=== PATIENT | male | born 1980 | race Caucasian/White ===

== ENCOUNTER 2017-09-19 11:30 | Emergency (ER) | payer BC, OTHER ==
--- NOTE | 2017-09-19 12:18 | ERNOTE ---
Medical Problem HPI - Narrative Date of Service: 09/19/17 - General Chief Complaint: General Assessment Time Seen by Provider: 09/19/17 11:53 Source: patient, family, RN notes reviewed Exam Limitations: no limitations - Immun/Allergies/Home Medications Immunizations: IMMUNIZATION HX Immunizations Up to Date No: unsure History of Influenza Vaccine No Hx Pneumococcal Vaccination No Allergies/Adverse Reactions: Allergies hydrocodone Allergy (Verified 09/19/17 12:09) naproxen [From Aleve] Adverse Reaction (Verified 09/19/17 12:09) Home Medications: HOME MEDICATIONS Cyclobenzaprine HCl [Flexeril] 10 mg PO TID PRN #20 tab 09/19/17 [Last Taken Unknown] Ibuprofen 400 mg PO QID PRN 09/19/17 [Last Taken Unknown] - History of Present History Narrative: 37 year old male presents to the ED for pain in his right lateral ribs that began approximately a year ago without incident. He was told at one time that he had a "rib out of place." He has taken ibuprofen for pain occasionally. He reports that the effected area feels "dry" on the inside. He is concerned something is wrong with his lung. Timing: getting worse, intermittent Review of Systems - Review of Systems Constitutional: Absent: recent illness, fever, malaise, decreased activity level EYE: Present: no symptoms reported ENT: Absent: nose congestion, sore throat Respiratory: Absent: shortness of breath, cough, wheezing Cardiology: Absent: palpitations, syncope Gastrointestinal/Abdominal: Absent: nausea, abdominal pain Genitourinary: Present: no symptoms reported Musculoskeletal: Present: back pain. Absent: neck pain, joint pain Skin: Absent: rash, lesions, lumps, change in color Neurological: Absent: headache, weakness, numbness, tingling Endocrine: Present: no symptoms reported Hematologic/Lymphatic: Present: no symptoms reported Psych: Present: no symptoms reported - Patient's Past Medical History Patient History - Medical: Anxiety, Depression Patient History - Cardiac/Respiratory: No pertinent hx Patient History - Cancer: No Hx of Cancer Patient History - Surgical Procedures: No surgical history Patient History - Other: None - Family History Father Family History - Medical: Family History - Cardiac/Respiratory: COPD Mother Family History - Medical: Family History - Cancer: Bone, Breast - Social History Living Situations: home Abuse History: No History of abuse Psych History: Hx of Anxiety, Hx of Depression Smoking Status: Current every day smoker Have you smoked in the past 12 months: Yes Do you dip or chew tobacco: No Alcohol Use: none Drug Use: none - Immunizations Immunizations Up to Date: No - unsure Hx Pneumococcal Vaccination: No History of Influenza Vaccine: No Physical Exam - Physical Exam General Appearance: Present: wd/wn, alert, no apparent distress Head Exam: Present: normal inspection Neck: Present: normal inspection, nontender, supple Respiratory: Present: no respiratory distress, normal breath sounds, no accessory muscle use, lungs clear, chest tenderness - Right lateral ribs Cardiovascular/Chest: Present: regular rate, rhythm, no murmur Back Exam: Present: normal inspection, normal range of motion, no vertebral tenderness Extremity Exam: Present: normal inspection, normal range of motion, no edema Neurological Exam: Present: alert, oriented, normal mood/affect, no motor/ sensory deficits Skin Exam: Present: normal color, warm/dry ED Progress - Vital Signs Patient's Vital Signs:: I have reviewed the patient's vital signs. Vital Signs: Vital Signs 09/19/17 11:37 Temperature 36.5 C Pulse Rate 68 Respiratory 13 Rate Blood Pressure 155/104 O2 Sat by Pulse 100 Oximetry - X-Ray X-Ray #1 X-Ray: chest Interpretation: Interp. by me X-ray Comments: No acute cardiopulmonary process or osseous abnormality noted - Progress/Reassessment Chief Complaint: General Assessment Progress:: Unchanged Departure Clinical Impression: Chronic chest wall pain - Departure Disposition: Home Follow Up Needed Condition: Good Instructions: Chest Wall Pain, [id number] Additional Instructions: OK to continue ibuprofen for pain Take Flexeril as directed - will likely cause drowsiness Consider seeing a chiropractor Prescriptions: Cyclobenzaprine HCl [Flexeril] 10 mg PO TID PRN #20 tab PRN Reason: MUSCLE SPASMS
[2017-09-19 12:54] VITALS: BP 133/88
== END 2017-09-19 12:53 | disposition home or self-care (01) ==
LOC: ER 11:30
DX: R07.89 Other chest pain (principal); G89.29 Other chronic pain; F17.200 Nicotine dependence, unspecified, uncomplicated
CPT/HCPCS: 71020; 71046; 99284